=== PATIENT | male | born 1955 | race Caucasian/White ===

== ENCOUNTER 2019-12-30 16:03 | Emergency (ER) | payer OTHER, SELFPAY ==
[2019-12-30 16:04] VITALS: BP 139/73; PULSE 58; RESP 16; TEMP 36.7; O2SAT 95; BMI 32.5
--- NOTE | 2019-12-30 16:28 | VDLE_ITS ---
Reason For Study: SWELLING Procedure LEFT Exam performed portable in ED. GSV is normal. A preliminary report was called and/or faxed CFV is compressible, spontaneous, phasic, to ED. competent, and demonstrates normal augmentation. FV is compressible, spontaneous, phasic, competent and demonstrates normal augmentation. POP V is compressible, spontaneous, phasic, competent and demonstrates normal augmentation. T/P Trunk is compressible. PTV is compressible. LT PerV is compressible. Interpretation Summary Deep veins of the left lower extremity are patent and compressible segmentally. There is no evidence of left lower extremity deep vein thrombosis. Valvular competence appears intact within the proximal deep venous system on the left . The left great saphenous vein appears patent and compressible segmentally. Ordering Physician: Gema Guerra Referring Physician: AGAPITO MANUEL Performed By: Carline Vasquez, RICHY, RVT
--- NOTE | 2019-12-30 16:29 | ED.VIS.GEN ---
History of Present Illness Chief Complaint: Lower Extremity Injury Informant: Patient Onset: Days Context: Gradual Onset Timing: Continuous Narrative: Patient is a [id number]-year-old male with history of unprovoked DVT, no longer on Eliquis (for the past 2 years) presenting with redness and swelling of his left lower leg. Patient initially thought he had sun poisoning from mowing the lawn on his leg. He states it was itchy. He denies any raised lesions or drainage. He is been putting some hydrocortisone ointment on it with some relief of the itching. He continues to have swelling. He denies any associated shortness of breath, chest pain or difficulty breathing. He denies any pain with range of movement of his calf. With his history of DVT he wanted to be evaluated further. Patient denies any other complaints at this time. Past Medical History - Allergies and Home Meds Allergies/Adverse Reactions: Allergies hydrochlorothiazide Adverse Reaction (Verified 12/30/19 16:04) Other messed with blood pressure Primary Care Physician: Angel Cochran MD [Primary Care Provider] - Past Medical History: - - DVT, pre-diabetes, HTN, HLD, history of DVT Surgical History: noncontributory Lives: Spouse/ Significant Other Smoking Status: Never smoker Drugs: None Review of Systems General: Denies: Chills, Fever, Sweats Eyes: Denies: Visual changes - bilaterally, Diplopia ENT: Denies: Rhinorrhea, Sore throat Cardiovascular: Denies: Chest pain, Palpitations Respiratory: Denies: Dyspnea, Cough, Dyspnea on exertion Gastrointestinal: Denies: Abdominal pain, Nausea, Vomiting, Diarrhea, Melena, Hematochezia Genitourinary: Denies: Dysuria, Hematuria, Frequency Musculoskeletal: Reports: Swelling - Left lower leg. Denies: Back pain, Extremity Pain Skin: Reports: Rash - Left lower leg. Denies: Wounds Neurological: Denies: Headache, Weakness, Numbness Physical Exam Vital Signs/Narrative: Vital Signs Temp Pulse Resp BP Pulse Ox 12/30/19 16:04 98.1 F 58 L 16 139/73 H 95 Inital Vital Signs reviewed: Yes General: Well nourished, Well developed, No Acute Distress Head: Normocephalic, Atraumatic Eyes: Perrl, EOMI ENT: Moist mucous membranes, No rhinorrhea Neck: Supple, Nontender, No JVD Cardiovascular: Regular rate, Regular rhythm, No murmurs, - - 2+ left DP and PT pulses Respiratory: No distress, CTA bilaterally, Chest nontender Abdomen: Soft, Nontender, Nondistended, Normal bowel sounds Back: Nontender, Normal Inspection Extremities: Nontender, Edema - 1+ pitting edema of the left lower leg, no associated pedal edema, - - No palpable cords.. Negative for: Tenderness, Calf Tenderness Skin: Normal color, Rash - Erythematous, flat, nonblanching rash scattered over the left lateral calf. Negative Nikolsky sign. No associated tenderness to palpation. Just distal to the left knee patient has 2 small satellite lesions that are about 5 mm in circumference and patient states they are itchy Neurological: Alert, Oriented x3, Cranial nerves II-XII grossly intact, Normal Strength, Normal Sensation Psychological: Normal affect, Normal Mood Diagnostic/Tx/Re-eval Laboratory Data 12/30/19 12/30/19 16:35 16:35 WBC 7.9 RBC 5.60 Hgb 16.7 H Hct 50.2 MCV 89.6 MCH 29.8 MCHC 33.3 RDW Std Deviation 42.3 RDW Coeff of Mildred 13.0 Plt Count 167 MPV 10.0 Immature Gran % (Auto) 0.800 Neut % (Auto) 62.8 Lymph % (Auto) 20.4 [place] % (Auto) 11.9 H Eos % (Auto) 3.3 Baso % (Auto) 0.8 Absolute Neuts (auto) 5.0 Absolute Lymphs (auto) 1.61 Nucleated RBC % 0 PT 12.5 INR 1.0 - Medical Decision Making Patient is evaluated for redness and swelling of his left lower leg. He has a history of DVT. Venous duplex ultrasound is negative for DVT. Patient's rash is flat and almost vesicular in appearance however it is asymmetric and spares the foot. I think this is very unusual for vasculitis. As he states it was itchy and he is been mowing his lawn I wonder if this could be more of a contact dermatitis. Patient will be started on an prednisone taper. He is instructed to follow-up with his primary care doctor. Patient is counseled on signs and symptoms requiring return to the emergency room. Patient verbalizes agreement and understand this plan. Patient discharged home in stable and improved condition. ED Disposition - Plan for ED Patient: Disposition: Home or Assisted Living Diagnosis: Left leg swelling, Rash and nonspecific skin eruption Instructions: ED DERMATITIS Plant and Sun Prescriptions: MethylPREDNISolone DosePak [Medrol DosePak] 4 mg PO UD #1 box Prescription Printed Referrals: Angel Cochran MD [Primary Care Provider] - Additional Instructions: You do not have a DVT. I suspect you have a skin reaction from either a plant you came in contact with or the sun. We will start you on steroids for this.
[2019-12-30 16:45] LABS: Absolute Lymphocyte Count 1.61 X10^3/uL (0.83-4.51); Basophil# 0.06 X10^3/uL; Basophil% 0.8 % (0-1); Eosinophil# 0.26 X10^3/uL; Eosinophils% 3.3 % (0-5); Hematocrit 50.2 % (40-54); Hemoglobin 16.7 g/dL (13.0-16.5); Lymphocyte # 1.61 X10^3/ul (4.0); Lymphocyte % 20.4 % (19-41); Mean Corp Hgb Conc 33.3 g/dL (32-36); Mean Corpuscular Hgb 29.8 pg (27.0-32.0); Mean Corpuscular Volume 89.6 fL (80-94); Monocyte# 0.94 X10^3/uL; Monocyte% 11.9 % (0-10); NRBC Flagged by Analyzer 0 % (0-5); Neutrophil # 4.97 X10^3/uL (2.7-7.7); Neutrophil % 62.8 % (47-70); Platelet Count 167 K/mm3 (150-450); RBC Distribution Width SD 42.3 fl (35.1-43.9); White Blood Count 7.9 K/mm3 (4.4-11.0)
[2019-12-30 17:03] LABS: Prothrombin Time (Protime)PT. 12.5 SECONDS (11.7-14.9)
== END 2019-12-30 18:17 | disposition home or self-care (01) ==
PROVIDERS: Emergency Provider Emergency Medicine; PCP Family Medicine
DX: M79.89 Other specified soft tissue disorders (principal); R21 Rash and other nonspecific skin eruption; I10 Essential (primary) hypertension; R73.03 Prediabetes; E78.5 Hyperlipidemia, unspecified; Z79.899 Other long term (current) drug therapy; Z79.82 Long term (current) use of aspirin; Z86.718 Personal history of other venous thrombosis and embolism
CPT/HCPCS: 36415; 85025; 85610; 93971; 99282

== ENCOUNTER 2021-09-23 07:33 | Emergency (ER) | payer MEDICARE, OTHER, SELFPAY ==
[2021-09-23 07:35] VITALS: BP 133/79; PULSE 58; RESP 17; TEMP 36.2; O2SAT 95; BMI 34.8
--- NOTE | 2021-09-23 07:46 | RAD_ITS ---
STUDY: X-RAY - UNILATERAL RIBS ( LEFT ) WITH CHEST REASON FOR EXAM: Male, 66 years old. Trauma, pain over left fifth through eighth rib TECHNIQUE - RIBS: 4 view(s) of the ribs. TECHNIQUE - CHEST: Single PA view of the chest. COMPARISON: None. FINDINGS - RIBS: Small linear nondisplaced fractures are present in the posterior aspect of the left 7th and 8th ribs. Normal visualized remaining aspects of the ribs. FINDINGS - CHEST: The lungs are clear and expanded. There is no demonstrated pleural abnormality. Normal size heart. Normal mediastinum and emily. Normal visualized pulmonary arteries. There is atherosclerotic calcification of the aortic arch with tortuosity. There are diffuse degenerative changes of the visualized thoracic spine. Normal visualized clavicles and shoulders. There is no demonstrated abnormality of the visualized soft tissue structures of the upper abdomen. RAD/Ribs Uni Min 3V w/PA Chest IMPRESSION: RIBS: Small linear nondisplaced fractures are present in the posterior aspect of the left 7th and 8th ribs CHEST: Degenerative changes, as described above. No demonstrated acute cardiopulmonary process. Electronically Signed: Navin Ritter MD at 8:18 EDT ,
--- NOTE | 2021-09-23 07:48 | ED.VIS.FALL ---
HPI HPI - Fall History of Present Illness Chief Complaint: Fall Detail of Chief Complaint: Left-sided rib pain status post fall September 21 Informant: patient and spouse/S.O. Occured/Mechanism Occurred: Days Mechanism/Context: Yes same level fall Narrative: Patient fell landing on his left side this past Thursday there was no head trauma Usually ambulates: Without assistance Pain/Injury Pain Location: chest (Left fifth through eighth rib) Quality of Pain: Dull Current Severity: Mild Maximum Severity: Severe Worsened by: Movement, twisting and bending Relieved by: Remaining still Associated Symptoms Associated Symptoms: Negative for Parasthesias, Weakness, Loss of function, Inability to ambulate, Loss of consciousness and Amnesia Narrative Narrative: Gigi is a 66-year-old male with history of hypertension, borderline diabetes with left-sided chest pain status post fall this past Thursday. He fell from a standing position. There is no history of head trauma. He denies loss of conscious. Denies neck pain. He has no other complaints. He is not on an anticoagulant. He has not had a change in the color of his urine. Tetanus Immunization: 5-10 years Prior similar symptoms: No Recent Illness/Hospitalization: No PFSH PFSH Medical History High cholesterol Hypertension Medical History no medical history Home Medications amlodipine 10 mg PO DAILY 02/26/17 [History Last Taken Unknown] atenolol 100 mg PO DAILY 02/26/17 [History Last Taken Unknown] lisinopril 40 mg PO DAILY 02/26/17 [History Last Taken Unknown] spironolactone 25 mg PO DAILY 02/26/17 [History Last Taken Unknown] aspirin 81 mg PO DAILY@0800 04/07/17 [History Last Taken Unknown] atorvastatin 20 mg PO DAILY 12/30/19 [History Last Taken Unknown] methylprednisolone 4 mg PO UD #1 box 12/30/19 [Rx Last Taken Unknown] oxycodone-acetaminophen 1 tab PO Q6H PRN PRN 5 Days #20 tablet 09/23/21 [Rx Last Taken Unknown] Allergy/AdvReac Type Severity Reaction Status Date / Time hydrochlorothiazide AdvReac Other Verified 09/23/21 07:34 Social History (Updated 09/23/21 @ 07:[address] Franco Wheatley MD) household members: spouse Smoking Status: Never smoker substance use type: does not use ROS ROS ED Constitutional Constitutional ED: Denies chills, fever(s) or subjective Eyes Eyes: Denies blurry vision, change in vision or diplopia Cardiovascular Cardiovascular: Reports chest pain; Denies palpitations Respiratory/Chest Respiratory/Chest: Denies dyspnea or dyspnea on exertion Genitourinary Genitourinary ED: Denies hematuria Musculoskeletal Musculoskeletal: Denies back pain or neck pain Neurologic Neurologic: Denies headache(s) EXAM Physical Exam Const Vital Signs: 09/23/21 07:35 09/23/21 07:42 Temperature 97.1 F L Temperature Source Temporal Pulse Rate 58 L Respiratory Rate 17 Respiratory Effort Normal Non-Labored Blood Pressure 133/79 H Blood Pressure Mean 97 Pulse Ox 95 Oxygen Delivery Method Room Air Room Air Positive well nourished, well developed and obese General Appearance ED: well developed and NAD Nutritional Appearance: obese HEENT Reports normocephalic HEENT Narrative: Ears normal. Nares patent. atraumatic; Negative for trauma or tenderness Eyes PERRL and EOMs intact bilaterally General Eye ED: Negative for pale conjunctiva or scleral icterus Neck full ROM and supple Chest Wall inspection of chest normal and palpation of chest normal Resp normal respiratory effort Resp Narrative: There is pain no patient over the left fifth through eighth rib and specifically the seventh is sensitive in the anterior axillary line. There is no crepitus or subcutaneous air appreciated. Effort and Inspection: pain with movement Auscultation: rales left lower (Does not clear with coughing.); Negative for diminished lung sounds Cardio regular rate, regular rhythm, S1 normal heart sound, S2 normal heart sound and no murmurs GI non-tender, non-distended and no masses GI Narrative: Specifically there is no tenderness in the left upper quadrant or left costal margin. There is no splenomegaly. Auscultation: normoactive bowel sounds Palpation: soft; Negative for guarding or rebound tenderness present Back/Spine no CVA tenderness Thoracic Spine / Upper Back: Negative for thoracic spinal tenderness Lumbar Spine / Lower Back: Negative for lumbar spinal tenderness Neuro oriented x3, CN's II-XII intact bilaterally, moves all extremities and no sensory deficits noted Cardwell Coma Scale: document GCS findings Spontaneous Obeys Commands Oriented 15 Sensorium / Orientation: alert Psych mental status grossly normal and thought process normal Skin Lesions: no lesions Rashes: no rashes MDM MDM MDM Narrative Medical decision making narrative: Left rib detail was obtained to evaluate for fracture, pneumothorax, hemothorax and atelectasis versus infiltrate since there are abnormal breath sounds on the left with rales that do not clear with breathing or coughing. Patient was administered 8 [place] tablet for his discomfort. He has been taking anti-inflammatory with little effect. Radiography Diagnostic Testin view left rib detail including PA of the chest reveals a fractured ninth left rib. There is no evidence of pneumothorax or hemothorax. There is no evidence of atelectasis or infiltrate either. This was independently interpreted by me at 0806. Discharge Plan Triage Chief Complaint: Fall ED Provider: Franco Wheatley Dx/Rx/DC Orders Clinical Impression: Left rib fracture, Injury due to fall Prescriptions: New oxycodone-acetaminophen [oxycodone-acetaminophen] 1 TABLET tablet 1 tab PO Q6H PRN PRN (Reason: pain) 5 Days Qty: 20 RF: 0 No Action atenolol 100 MG tablet 100 mg PO DAILY RF: 0 spironolactone 25 MG tablet 25 mg PO DAILY RF: 0 amlodipine 10 MG tablet 10 mg PO DAILY RF: 0 lisinopril 40 MG tablet 40 mg PO DAILY RF: 0 aspirin 81 MG tablet,chewable 81 mg PO DAILY@0800 RF: 0 atorvastatin 20 MG tablet 20 mg PO DAILY RF: 0 methylprednisolone 4 MG tablet 4 mg PO UD Qty: 1 RF: 0 Primary Care Provider: Angel Cochran Referrals: Angel Cochran MD [Primary Care Provider] - Activity Restrictions/Additional Instructions: Use incentive spirometer every 1-2 hours while awake for the next week. If you are still having significant pain after 5 days contact your doctor, Dr. Angel Cochran for more pain medicine. Disposition Disposition: Home, Self Care
[2021-09-23] MEDS: HYDROcodone Bitartrate/Apap 5/325 Tablet PO (08:05)
--- NOTE | 2021-09-25 14:22 | CASEMGMT ---
CHRIST[facility]YLE ED f/u note: ER visit: 09/23/21. Complaint: Fall Call placed to pt to see how he has been doing since ED visit. Pt states, I'm doing okay, but states, I can't move much because of the pain. Pt has been taking Oxy/Acet PRN as prescribed and is helping the pain, As long as I keep up on it. He denies SOB. He has been using ice packs PRN. He states he has enough pain medication for 2 more days. He has called his PCP to see if he will prescribe any further pain medication and is awaiting return call. PCP appt has been scheduled for in 2 weeks. He denies having any questions or concerns. Shelton DUVALL RN, CM
== END 2021-09-23 08:28 | disposition home or self-care (01) ==
PROVIDERS: Emergency Provider Emergency Medicine; PCP Family Medicine; Visit Provider Emergency Medicine
DX: S22.32XA Fracture of one rib, left side, initial encounter for closed fracture (principal); R06.9 Unspecified abnormalities of breathing; W18.30XA Fall on same level, unspecified, initial encounter; I10 Essential (primary) hypertension; R73.03 Prediabetes; E78.00 Pure hypercholesterolemia, unspecified; E66.9 Obesity, unspecified; Z79.82 Long term (current) use of aspirin; Z79.52 Long term (current) use of systemic steroids; Z79.899 Other long term (current) drug therapy
CPT/HCPCS: 71101; 99282